=== PATIENT | female | born 1990 | race African-American/Black ===

== ENCOUNTER 2018-03-04 06:56 | Day surgery (SDC) | payer OTHER ==
--- NOTE | 2018-02-25 11:24 | RADIOLOGY REPORT (SQ) ---
EXAM DESCRIPTION: CHEST PA/LATERAL COMPLETED DATE/TIME: 02/25/2018 11:12 am REASON FOR STUDY: PRE-OP COMPARISON: None. EXAM PARAMETERS: NUMBER OF VIEWS: two views TECHNIQUE: Digital Frontal and Lateral radiographic views of the chest acquired. RADIATION DOSE: NA LIMITATIONS: none FINDINGS: LUNGS AND PLEURA: No opacities, masses or pneumothorax. No pleural effusion. MEDIASTINUM AND HILAR STRUCTURES: No masses or contour abnormalities. HEART AND VASCULAR STRUCTURES: Heart normal size. No evidence for failure. BONES: No acute findings. HARDWARE: None in the chest. OTHER: No other significant finding. IMPRESSION: NO SIGNIFICANT RADIOGRAPHIC FINDING IN THE CHEST. TECHNICAL DOCUMENTATION: JOB ID: [id number] [employer]- All Rights Reserved Reading location - IP/workstation name: [email or web address]
[2018-02-25 12:15] LABS: APPEARANCE,URINE CLEAR; BILIRUBIN,URINE NEGATIVE (NEGATIVE); COLOR,URINE STRAW; GLUCOSE, URINE NEGATIVE (NEGATIVE); KETONES,URINE NEGATIVE (NEGATIVE); LEUKOCYTE ESTERASE,URINE NEGATIVE (NEGATIVE); NITRITE,URINE NEGATIVE (NEGATIVE); PROTEIN,URINE NEGATIVE (NEGATIVE); URINE SPECIFIC GRAVITY 1.013; UROBILINOGEN,URINE NEGATIVE mg/dL (<2.0)
[2018-02-25 12:16] LABS: HEMATOCRIT 43.1 % (36.0-47.0); HEMOGLOBIN 14.5 g/dL (12.0-15.5); MEAN CORPUSCULAR HEMOGLOBIN 29.4 pg (27.0-33.4); MEAN CORPUSCULAR HGB CONC 33.6 g/dL (32.0-36.0); MEAN CORPUSCULAR VOLUME 87 fl (80-97); PLATELET COUNT 264 10^3/uL (150-450); RED BLOOD COUNT 4.94 10^6/uL (3.72-5.28); RED CELL DISTRIBUTION WIDTH 12.8 % (11.5-14.0); WHITE BLOOD COUNT 5.7 10^3/uL (4.0-10.5)
--- NOTE | 2018-02-25 12:39 | EKG REPORT ---
SEVERITY:- NORMAL ECG - SINUS RHYTHM : Confirmed by: David Donaldson MD 25-Feb-2018 12:38:52
[2018-02-25 12:45] LABS: ANION GAP 15 (5-19); BLOOD UREA NITROGEN 15 mg/dL (7-20); CALCIUM 9.8 mg/dL (8.4-10.2); CARBON DIOXIDE 21 mmol/L (22-30); CHLORIDE 104 mmol/L (98-107); GLUCOSE 81 mg/dL (75-110); POTASSIUM 5.2 mmol/L (3.6-5.0); SODIUM 139.5 mmol/L (137-145)
[~2018-03-04 06:56] MED LIST: CEFAZOLIN 2 GM/D5W RTU 2 GM/50 ML RTUPB IV PRN; CEFAZOLIN SODIUM 2 GM in DEXTROSE 5%-WATER 100 ML IV PRN; LACTATED RINGERS 1000 ML IV PRN; LIDOCAINE 0.5% INJ-PF (5 MG/ML) 50 ML SDV SUBCUT PRN
[2018-03-04] MEDS ORDERED: FAMOTIDINE INJ/PF 20 MG/2 ML SDV IV ONE (07:46)
[2018-03-04] MEDS ORDERED: SCOPOLAMINE HYDROBROMIDE 1.5 MG PATCH.TD72 ONE (07:46)
[2018-03-04] MEDS ORDERED: BUPIVACAINE HCL 0.5 % INJ/PF 30 ML SDV ONE (08:14)
[2018-03-04] MEDS ORDERED: LIDOCAINE 1% INJ-PF (10 MG/ML) 30 ML SDV ONE (08:15)
[2018-03-04] MEDS ORDERED: MIDAZOLAM 2 MG/2 ML INJ ONE (08:58)
[2018-03-04] MEDS ORDERED: FENTANYL CITRATE INJ/PF 100 MCG/2 ML AMPUL ONE (08:58)
[2018-03-04] MEDS ORDERED: ACETAMINOPHEN 1,000 MG/100 ML RTUPB IV ONE (08:59)
[2018-03-04] MEDS ORDERED: PROPOFOL INJ 200 MG/20 ML VIAL IV ONE (08:59)
[2018-03-04] MEDS ORDERED: ONDANSETRON HCL INJ/PF 4 MG/2 ML SDV ONE ×2 (09:06→11:25)
[2018-03-04] MEDS ORDERED: DEXAMETHASONE SOD PHOSPHATE INJ 4 MG/1 ML VIAL ONE ×2 (09:06→11:25)
[2018-03-04] MEDS ORDERED: LIDOCAINE 2% INJ (20 MG/ML) 20 ML MDV ONE ×3 (09:08→13:49)
[2018-03-04] MEDS ORDERED: MEPERIDINE HCL/PF INJ 25 MG/1 ML DISP.SYRIN IV PRN (09:54)
[2018-03-04] MEDS ORDERED: DIPHENHYDRAMINE HCL 50 MG/ML VIAL IV PRN (09:54)
[2018-03-04] MEDS ORDERED: MORPHINE SULFATE 10 MG/ML INJ IV PRN ×2 (09:54→11:58)
[2018-03-04] MEDS ORDERED: FENTANYL CITRATE INJ/PF 100 MCG/2 ML AMPUL IV PRN ×3 (09:54)
[2018-03-04] MEDS ORDERED: PROMETHAZINE HCL INJ 25 MG/1 ML VIAL IV PRN ×2 (09:54)
[2018-03-04] MEDS ORDERED: OXYCODONE-ACETAMINOPHEN 5-325 MG TABLET PO PRN (11:58)
--- NOTE | 2018-03-04 11:59 | Discharge Summary ---
Discharge Summary (SDC) - Discharge Final Diagnosis: Right wrist TFCC tear, EDC subluxation/sub sheath tear, SL Tear Date of Surgery: 03/04/18 Discharge Date: 03/04/18 Condition: Good Treatment or Instructions: Schedule Follow Up w/ Dr. Manish Barone @ [facility] for Surgery to be seen in 10-14 days or as scheduled [place]: [place]: [place]: Ice and elevate Keep splint clean/dry/intact. If your fingers become numb please unwrap the Tristen wrap but leave the splint in place, if the sensation does not return within 30 minutes please return to the emergency department. May begin finger range of motion attempting to make full fist. Please use ibuprofen (Motrin or Advil) 600-800 mg every 8 hours as needed for pain or fever DO NOT TAKE w/ TORADOL may use once TORADOL complete. You may also use acetaminophen (Tylenol) 1000 mg every 4-6 hours as needed for pain or fever. Please be aware that many medications contain acetaminophen, do not exceed a total of 1000 mg of acetaminophen every 6 hours. If ibuprofen and acetaminophen are not sufficient for your pain you may take the Percocet/[place]. Please be aware that the Percocet/[place] does contain Tylenol. Stool softener of choice when on pain medication. Prescriptions: Ketorolac Tromethamine [Toradol 10 mg Tablet] 10 mg PO Q8HP PRN #10 tablet PRN Reason: Oxycodone HCl/Acetaminophen [Percocet 5-325 mg Tablet] 1 tab PO Q6 PRN #30 tab PRN Reason:
[2018-03-04] MEDS: FENTANYL CITRATE INJ/PF 100 MCG/2 ML AMPUL ONE ×2 (12:10→12:20)
--- NOTE | 2018-03-04 12:10 | Operative Report ---
Operative Report DATE OF SURGERY: 03/04/18 PREOPERATIVE DIAGNOSIS: Right wrist TFCC tear, EDC subluxation/sub sheath tear POSTOPERATIVE DIAGNOSIS: Same+. Jaciel grade II scapholunate ligament tear OPERATION: Right wrist arthroscopy with partial synovectomy ulnocarpal joint. Open ECU sub-sheath reconstruction, tenosynovectomy. Percutaneous pinning scapholunate interval SURGEON: BINA RESTREPO ANESTHESIA: GA COMPLICATIONS: None ESTIMATED BLOOD LOSS: Minimal PROCEDURE: Indication for above procedure: 27-year-old female presents with pain in her right wrist. Patient attempted conservative measures including bracing and anti-inflammatories. MRI examination demonstrate evidence of TFCC pathology and instability of the ECU. At that point we discussed treatment options including operative versus nonoperative intervention. After discussing risks and benefits of both joint decision was made to proceed with operative treatment. Procedure In Detail: Patient was seen and evaluated in the preoperative holding area. The RIGHT upper extremity was initialized and marked. Patient received 2g of Ancef IV for bacterial prophylaxis. Patient was taken back to the operative room where transferred to the operative table and placed under general anesthesia. Once they were adequately anesthetized a nonsterile tourniquet was placed on the upper extremity. A surgical team debriefing was performed ensuring all instrumentation was available, the surgical procedure was discussed with possible concerns reviewed. The upper extremity was prepped with chlorhexidine and alcohol and draped in a sterile fashion. A timeout was done identifying correct patient, procedure and extremity everyone in attendance agree with this and verbalized no concerns. Patient was placed in the Acumed wrist distraction system. The extremity was exsanguinated the tourniquet was inflated to 250 mmHg. A 3-4 portal was established. Dry arthroscopy demonstrated no evidence of degenerative change along the radiocarpal joint intact membranous portion of the scapholunate interval. A R-U portal was established Via triangulation. There was synovitis within the prestyloid recess at the ulnohumeral joint no evidence of TFCC tear after probing. Normal trampoline effect noted. The arthroscopic shaver was then introduced into the ulnocarpal joint and a partial synovectomy was performed. The area was then smoothed with the ablator. A midcarpal radial portal was established and via triangulation a midcarpal ulnar portal established. Inspection of the midcarpal joint demonstrated no significant synovitis there is no widening of the lunotriquetral interval. There was evidence of widening at the scapholunate interval with fraying of the dorsal scapholunate ligament however complete tear was not appreciated. The probe was then introduced into the scapholunate interval however there was not evidence of step-off. Thus it was likely a Jaciel II scapholunate disassociation but given patient's lack of preoperative findings also normal variant as possible. Thus decision was to proceed with scapholunate pinning. The scapholunate ligament interval was reduced and a small stab incision was made just distal to the radial styloid. The superficial radial nerve was identified along with the extensor tendons and retracted until the scaphoid was exposed. 2x 0.045 K wires were placed across the scapholunate interval while maintaining reduction. These K wires were then bent and cut left outside the skin. Longitudinal skin incision was made over the sixth dorsal compartment. Blunt dissection performed. Branches of the dorsal ulnar sensory branch were identified and retracted. The fourth and fifth dorsal compartments along with the 6th dorsal compartment were identified and opened in a transverse direction. I then elevated the septum between the fourth/fifth dorsal compartment and fifth/sixth dorsal compartment along with the extensor retinaculum, sub-sheath of the ECU was left intact. This exposed the ECU sub- sheath and tendon. There was mild tenosynovium within the subcu fat and thus a tenosynovectomy was performed of the ECU. There was patulous of the sub-sheath noted with the ECU subluxated in a ulnar direction. Thus the sub-sheath was opened in a shallow groove was appreciated. The groove was then contoured and the labrum of the sub-sheath elevated along with the linear jugata only to allow for repair. A Arthrex micro anchor and mini anchor were inserted under C arm fluoroscopy to confirm appropriate placement. The linea jugata and ulnar limb of the sub-sheath was then repaired to their [place] location with horizontal mattress transversing the labrum/sub-sheath and the flap of extensor retinaculum this adequately provided a buttress to the ECU tendon avoiding subluxation and ulnar direction. The remaining extensor retinaculum was then placed underneath the EDM and secured to the remaining fourth dorsal compartment with interrupted 2-0 Ethibond. This provided stability of the ECU tendon throughout wrist range of motion including pronation and supination. There is no evidence of residual DRUJ instability once repair was completed. The wound was then copiously irrigated with normal saline. Tourniquet was deflated. Any peripheral bleeding was controlled with bipolar cautery. Subcutaneous tissues were closed with interrupted 4-0 Monocryl suture. Skin was closed with running subcuticular 4-0 Monocryl reinforced with Dermabond and Steri-Strips. Patient was placed in a sugar tong splint with the wrist in mild pronation. Sponge counts, instrument counts, needle counts counts were correct. Patient was then awoken from anesthesia. Transferred from the operating room table to the operating room stretcher. There was no intraoperative complications patient tolerated procedure well stable to PACU. Postoperative plan: Patient will continue with long-arm splint for the next 2 weeks. Within be fitted Occupational Therapy for a two-week custom long arm splint. Flexion- extension will begin at 20/20 increasing 10 every 5 days. Pronation will begin at 20/20 increasing every 5 days. Will begin strengthening once patient received 75% motion. May continue taping during the strength phase. Return to plate 3 months.
--- NOTE | 2018-03-04 13:15 | RADIOLOGY REPORT (SQ) ---
EXAM DESCRIPTION: WRIST RIGHT 2 VIEWS; NO CHG FLUORO COMPLETED DATE/TIME: 03/04/2018 11:41 am REASON FOR STUDY: RT WRIST M77.8 OTHER ENTHESOPATHIES, NOT ELSEWHERE CLASSIFIED COMPARISON: None. FLUOROSCOPY TIME: 26 seconds 17 fluoro images images saved to PACS. TECHNIQUE: Intra-operative images acquired during surgical procedure to evaluate progress. NUMBER OF IMAGES: 17 fluoro images LIMITATIONS: None. FINDINGS: Intraoperative imaging and fluoro during K-wire placement across the scapholunate joint IMPRESSION: Intra procedural imaging and fluoro COMMENT: Quality ID [id number]: Final reports for procedures using fluoroscopy that document radiation exp osure indices, or exposure time and number of fluorographic images (if radiation exposure indices are not available) Please consult full operative report of the attending physician for description of the procedure. TECHNICAL DOCUMENTATION: JOB ID: [id number] [employer]- All Rights Reserved Reading location - IP/workstation name: [email or web address]
--- NOTE | 2018-03-04 13:15 | RADIOLOGY REPORT (SQ) ---
EXAM DESCRIPTION: WRIST RIGHT 2 VIEWS; NO CHG FLUORO COMPLETED DATE/TIME: 03/04/2018 11:41 am REASON FOR STUDY: RT WRIST M77.8 OTHER ENTHESOPATHIES, NOT ELSEWHERE CLASSIFIED COMPARISON: None. FLUOROSCOPY TIME: 26 seconds 17 fluoro images images saved to PACS. TECHNIQUE: Intra-operative images acquired during surgical procedure to evaluate progress. NUMBER OF IMAGES: 17 fluoro images LIMITATIONS: None. FINDINGS: Intraoperative imaging and fluoro during K-wire placement across the scapholunate joint IMPRESSION: Intra procedural imaging and fluoro COMMENT: Quality ID [id number]: Final reports for procedures using fluoroscopy that document radiation exp osure indices, or exposure time and number of fluorographic images (if radiation exposure indices are not available) Please consult full operative report of the attending physician for description of the procedure. TECHNICAL DOCUMENTATION: JOB ID: [id number] [employer]- All Rights Reserved Reading location - IP/workstation name: [email or web address]
[2018-03-04] MEDS ORDERED: LIDOCAINE 2%/EPINEPHRINE INJ 20 ML VIAL ONE (13:48)
[2018-03-04] MEDS ORDERED: ROPIVACAINE HCL 0.5% INJ/PF (5 MG/1 ML) 30 ML SDV ONE (13:48)
[2018-03-04] MEDS ORDERED: ROCURONIUM BROMIDE INJ 50 MG/5 ML VIAL IV ONE (13:58)
[2018-03-04 15:19] VITALS: BP 112/66
== END 2018-03-04 15:10 | disposition home or self-care (01) ==
LOC: OROUT 06:56
PROVIDERS: ATTEND Orthopaedic Surgery
DX: M77.8 Other enthesopathies, not elsewhere classified (principal); S63.071A Subluxation of distal end of right ulna, initial encounter; X58.XXXA Exposure to other specified factors, initial encounter; S63.591A Other specified sprain of right wrist, initial encounter; S63.511A Sprain of carpal joint of right wrist, initial encounter; M62.81 Muscle weakness (generalized); M25.531 Pain in right wrist; M19.031 Primary osteoarthritis, right wrist; M65.831 Other synovitis and tenosynovitis, right forearm; Z01.818 Encounter for other preprocedural examination; Z01.810 Encounter for preprocedural cardiovascular examination; Z01.811 Encounter for preprocedural respiratory examination; Z01.812 Encounter for preprocedural laboratory examination
CPT/HCPCS: 93005; 36415 ×2; 84132; 85027; 81025; 80048; 81001; 71046; 73100; 93010; 29844; 25690; 25116; C1713 ×3; J2795; J2250; J3490 ×4; J1100; J3010; J2405; J2704; S0028; J0690; J0131; 01820